=== PATIENT | male | born 1955 | race Caucasian/White ===

== ENCOUNTER 2017-07-05 11:46 | Observation (INO) ==
--- NOTE | 2017-07-04 22:19 | Discharge Summary ---
<Thao Mejia E - Last Filed: 07/04/17 22:16> Date of Encounter: 07/04/17 - Discharge Diagnosis (1) Rotator cuff tear arthropathy of right shoulder Priority: Primary Status: Chronic (2) Tobacco dependence Priority: Secondary Status: Chronic (3) GERD (gastroesophageal reflux disease) Priority: Secondary Status: Chronic (4) Obesity Priority: Secondary Status: Chronic Qualifiers: Obesity type: unspecified obesity type Obesity classification: unspecified obesity classification Serious obesity comorbidity presence: unspecified whether serious comorbidity present Qualified Code(s): E66.9 - Obesity, unspecified - Hospital Course Hospital course: Mr. Gama is a 62 year old male - Time Spent with Patient Total time spent providing and/or coordinating discharge services: - Discharge Medications Home Medications: OxyCODONE Immed Rel [Roxicodone 5 MG] 5 mg PO Q6HR PRN 7 Days #28 tablet [Rx] Celecoxib [Celebrex] 400 mg PO DAILY 07/05/17 [History] Gabapentin [Neurontin] 600 mg PO TID 07/05/17 [History] HYDROcodone/Acet 5/325 mg [[place] 5-325 mg] 1 tab PO Q6H PRN 07/05/17 [History] Oxybutynin Chloride [Ditropan Xl] 10 mg PO DAILY 07/05/17 [History] Tamsulosin [Flomax] 0.4 mg PO HS 07/05/17 [History] Terbinafine HCl [Lamisil] 250 mg PO HS 07/05/17 [History] Allergies/Adverse Reactions: 3 Allergy/AdvReac Type Severity Reaction Status Date / Time No Known Allergies Allergy Verified 07/05/17 12:38 Primary care physician: Mik Cheung MD - Patient Status Disposition: Home, Self-Care Condition: Good - Discharge Instructions Follow Up With: Mik Cheung MD [Primary Care Provider] - Fadia Prater PAC [Physician Society Reporter] - 07/15/17 8:15 am Additional Instructions: Discharge Instructions: Total Shoulder Please call [facility] ([phone]), your Primary Care Physician, or report to the Emergency Room if you have any of the following symptoms: Nausea, vomiting, fever greater that 101.5, swelling, chest pain, shortness of breath, increased pain/redness/drainage/odor for your incision site, numbness/ tingling, or any other concerning symptoms. ACTIVITY: Always keep your arm in the sling. Do not raise your arm away from your body. Do not use your arm to help with getting in or out of bed. No weight bearing permitted. Only perform those exercises given to you by your therapist. MEDICATIONS: Upon discharge resume your home medications. Take all the medications as prescribed. Take a stool softener if taking narcotic pain medications. Stool softeners are only effective if you drink enough fluids. Drink 6-8 glass of water or fluids a day, unless this is not allowed for another health problem. Despite using stool softeners, if you haven't had a bowel movement in 3 days, please switch to a gentle laxative. Gentle laxatives are sold over the counter. You should have a bowel movement within 24 hours, if not call the office. You will be discharged from the hospital with a prescription for pain medication. You are encouraged to decrease the use of narcotic pain medication as tolerated. Should you require a refill, please call the office. [facility] prescribes narcotic pain medication for only 4-6 weeks after surgery. If you require pain medication beyond this time period, you may be referred to your Primary Care Physician or to the Pain Clinic for further evaluation. Plan ahead for refills on pain medication as many narcotics either need to be picked up at the office or mailed. It is best to call 48-72 hours in advance of needing a prescription refill so you don't run out of medication. To help control the post-operative pain, you may take NSAIDs (Aleve,Advil, Motrin, Ibuprofen, Naprosyn) or Tylenol as prescribed on the bottle in addition to the pain medication. WOUND CARE: Leave the dressing on for 7-10 days. You may change the dressing if it becomes saturated greater than 50%. Do not get the dressing wet at anytime. Wash your hands with antibacterial soap, rinse and dry prior to any wound care. If you have antonio the visiting nurse or rehab facility can remove the stapes 10-14 days after surgery and place steri-strips across the wound. Leave the steri-strips in place until they fall off on their own. You may let water from the shower run on top of the steri-strips. If you do not have a visiting nurse or rehab facility, you will need to return to the office at 10-14 days for the antonio to be removed. If you have itching or redness around the dressing call the office. FOLLOW-UP: Please follow up with your surgeon in the orthopedic clinic, as scheduled <Isra Guillaume - Last Filed: 07/06/17 06:59> Orders not resulted at time of discharge: Pending orders 07/05/17 01:00 XR shoulder complete RT [XR] Routine Hemoglobin and Hematocrit [HEME] Routine Date of Encounter: 07/06/17 Time of Encounter: 06:58 - Discharge Diagnosis (1) Obesity, morbid, BMI 40.0-49.9 Priority: Secondary Status: Chronic (2) Rotator cuff tear arthropathy of right shoulder Priority: Primary Status: Chronic (3) Tobacco dependence Priority: Secondary Status: Chronic (4) GERD (gastroesophageal reflux disease) Priority: Secondary Status: Chronic Qualifiers: Esophagitis presence: esophagitis presence not specified Qualified Code(s) : K21.9 - Gastro-esophageal reflux disease without esophagitis - Hospital Course Hospital course: Mr. Gama is a 62 year old male Status post total shoulder replacement discharged home same day - Time Spent with Patient Total time spent providing and/or coordinating discharge services: Primary care physician: Mik Cheung MD - Patient Status Functional capacity at discharge: independent ambulation Overall status at discharge: patient is progressing back to baseline
[2017-07-05] MEDS ORDERED: Albuterol 2.5 MG/3 ML NEBULIZER IH ONE (12:15)
[2017-07-05] MEDS ORDERED: Lidocaine -MPF 1% 2 ML VIAL ID ONE (12:15)
[2017-07-05] MEDS ORDERED: CeFAZolin Syr 3,000MG/30 ML 3,000 MG/30 ML SYRINGE IVPB ONE ×2 (12:15→18:57)
[2017-07-05] MEDS ORDERED: Plasma-Lyte A (PH 7.4) 1,000 ML IVC SCH (12:15)
--- NOTE | 2017-07-05 12:16 | History & Physical Report ---
Date of Encounter: 07/05/17 Time of Encounter: 12:16 24 Hour HP Update - Instructions Instructions: If the History and Physical is less than 30 days old and was completed prior to A.M. admission and or procedure and has NOT been updated on calendar day of procedure please complete this update prior to performing procedure. - Update Patient reports changes in Medical Condition: No Changes in examination, assessment, or condition: No Changes in Medication: No Preop tests/diagnostics Reviewed: Yes Surgery Remains Indicated: Yes Consent for Planned Operative Procedure(s) Verified: Yes - Pre-Operative Checklist Preoperative Checklist Indicated: No Prophylactic Antibiotic Ordered: Yes Is VTE Prophylaxis Indicated?: Yes
[2017-07-05] MEDS ORDERED: *HR* Midazolam HCl 2 MG/2 ML VIAL ONE (13:44)
[2017-07-05] MEDS ORDERED: *HR* FentaNYL (PF) 100 MCG/2 ML VIAL ONE (13:44)
[2017-07-05] MEDS ORDERED: *HR* Propofol 200 MG/20 ML VIAL IVP ONE ×2 (13:44→15:37)
[2017-07-05] MEDS ORDERED: Lidocaine -MPF 2% 2 ML VIAL ONE ×2 (13:47→14:55)
[2017-07-05] MEDS ORDERED: Acetaminophen IV 1,000 MG/100 ML INFUS..BTL IVPB ONE (13:49)
--- NOTE | 2017-07-05 13:52 | Anesthesia Evaluation PreOp ---
Date of Encounter: 07/05/17 Time of Encounter: 13:50 - Past History Planned Operation: R total shoulder replacement, reverse ball socket Cardiac History: Denies any Significant Hx Pulmonary History: Smoker PEWTER FABRICATOR History: Other (neuropathy bilat ankles) Other Medical History: Other (BMI 42) Anesthesia History: Past Anesthesia (reinaldo TKR, reinaldo CTR, appendectomy, lumbar fusion, L cecile fusion), Problems (hx of difficult intubation once in the past) Alcohol Use: none Drug use: none Medications and Allergies OxyCODONE Immed Rel [Roxicodone 5 MG] 5 mg PO Q6HR PRN 7 Days #28 tablet [Rx] Celecoxib [Celebrex] 400 mg PO DAILY 07/05/17 [History] Gabapentin [Neurontin] 600 mg PO TID 07/05/17 [History] HYDROcodone/Acet 5/325 mg [[place] 5-325 mg] 1 tab PO Q6H PRN 07/05/17 [History] Oxybutynin Chloride [Ditropan Xl] 10 mg PO DAILY 07/05/17 [History] Tamsulosin [Flomax] 0.4 mg PO HS 07/05/17 [History] Terbinafine HCl [Lamisil] 250 mg PO HS 07/05/17 [History] 3 Allergy/AdvReac Type Severity Reaction Status Date / Time No Known Allergies Allergy Verified 07/05/17 12:38 - Meds/Allergy Pre-op Review Medications Reviewed: Yes Allergies Reviewed: Yes Beta Blockers on Current Med List: No Anesthesia Results - Labs Laboratory Tests 06/21/17 06/21/17 06/21/17 08:32 08:32 08:35 WBC 4.0 L Hgb 14.9 Hct 46.3 Plt Count 188 PT 10.4 INR 1.0 APTT 32.0 Sodium 138 Potassium 4.3 Chloride 106 Carbon Dioxide 29 BUN 17 Creatinine 0.79 Glucose 95 - Imaging EKG: image reviewed (SR) Anesthesia Exam O2 Sat Height 1.77 m Height 1.77 m Weight 133.81 kg Weight 133.81 kg O2 Sat by Pulse Oximetry 98 O2 Sat by Pulse Oximetry 98 Vital Signs Temp Pulse Resp BP Pulse Ox 97.8 F 68 18 128/86 98 07/05/17 12:19 07/05/17 12:19 07/05/17 12:19 07/05/17 12:19 07/05/17 12:19 Height: 69" Weight: 295lbs NPO (# of Hours): >8 - HEENT Pupil (Motor): Pupils equal, EOMI Mallampati: III Teeth: Prosthesis (extensive upper caps and crowns) Oral Opening: Greater than 3 - PEWTER FABRICATOR LOC: Oriented PEWTER FABRICATOR Motor: Normal RUE, Normal LUE, Normal RLE, Normal LLE, Normal Face PEWTER FABRICATOR Sensory: Normal: RUE, LUE, RLE, LLE, Face - Cardiac Rhythm: Regular - Pulmonary Breath Sounds: bilateral Clear Respiratory Effort: Symmetrical Anesthesia Assess/Plan ASA Score: 3 (smoker, BMI 42) Modified [place] Scale for Level of Consciousness: Cooperative, oriented, and tranquil Anesthetic Plan: General, Regional (R brachial plexus block) Monitoring Plan: Standard Monitors Recovery Plan: PACU
[2017-07-05] MEDS ORDERED: ROPIVACAINE HCL/PF 0.5% 30 ML VIAL ONE (14:17)
[2017-07-05] MEDS ORDERED: Dexamethasone 4 MG/ML VIAL ONE ×2 (14:22→16:04)
--- NOTE | 2017-07-05 14:42 | Anesthesia Procedures ---
Date of Encounter: 07/05/17 Time of Encounter: 14:40 Procedures: Anesthesia - Nerve Block Procedure Date: 07/05/17 Time: 14:40 Surgical Procedure: right tsr reverse Checklist: Correct Patient Identifier, Correct procedure, History checked Correct side: Right Blood Thinner: No Monitor Applied: EKG, BP, Pulse Oximetry Supplemental Oxygen via Nasal Cannula (L/min): 2 Sedation: Versed (mg): 2 Sedation: Fentanyl (mcg): 100 Indication: Post Op Analgesia (request per dr damian for post op pain control) Pre-op Neuro Deficits: No Block Type: Supraclavicular Catheter placed: No Sterile Technique: Yes Ultrasound used: Yes Anatomy identified: Yes Visual spread of Local: Yes Neuro Stimulation: No Blood on Needle Aspiration: No Smooth Injection of Local: Yes Pain with Injection of Local: No Prep: Chlorhexadine Needle: 22 x 50 mm Stimuplex Local: Ropivacaine Volume (cc): 30 Number of Attempts: 1 Complications: None/effective block Vitals: Vital Signs/O2 Sat/Glucose, Most Current Temp Pulse Resp BP Pulse Ox 07/05/17 12:19 97.8 F 68 18 128/86 98 Comments: pt tolerated procedure well. no complications. vss
[2017-07-05] MEDS ORDERED: *HR* Succinylcholine 200 MG/10 ML VIAL IVP ONE (14:56)
[2017-07-05] MEDS ORDERED: Lidocaine -MPF 4% 5 ML AMPUL ONE (14:59)
[2017-07-05] MEDS ORDERED: *HR* PHENYLEPHRINE 1,000 MCG/10 ML SYRINGE IVP ONE (15:33)
[2017-07-05] MEDS ORDERED: Ketorolac 30 MG/ML VIAL ONE (16:04)
[2017-07-05] MEDS ORDERED: Ondansetron 4 MG/2 ML VIAL ONE (16:04)
--- NOTE | 2017-07-05 16:05 | Orthopedic Operative Note ---
Date of procedure: 07/05/17 Pre-op diagnosis: Right cuff tear arthropathy Post-op diagnosis: same Procedure: Procedure: Total Shoulder Replacment Reverse, right Estimated blood loss: 100 cc Hardware: Metal and polyethylene replacement: Arthrex large glenoid baseplate, 2 4.5 screws. 1 6.5 screw, 42+4 glenosphere, 9 humeral stem, poly insert 3 and 6 metal Exam Under anesthesia: Full motion and no instability Procedural Notes: Grade 4 arthritic changes humeral head glenoid socket tear rotator cuff Operative procedure: The patient was brought to the operating room and placed on the operating room table. After general anesthesia was administered the operative shoulder was examined. Findings were noted. The patient was placed in the modified beachchair position. All pressure points were padded appropriately. And the head was stabilized in the neutral position. The operative extremity was prepped and draped in the sterile surgical fashion. The patient received IV antibiotics prior to skin incision. A standard deltopectoral approach was made to the operative shoulder. Incision was made to the skin and subcutaneous tissue,hemo stasis was obtained with Bovie cautery. Using careful blunt dissection the cephalic vein was identified and mobilized medially. The deltopectoral interval was developed and the clavipectoral fascia was incised. The subscap was released off the lesser tuberosity and tagged with #2 FiberWire suture subscap was irreparable. The humerus was dislocated patient noted to have irreparable tear supraspinatus tendon, and the humeral cut was made along the anatomic neck. Patient noted to have grade 4 arthritic changes humeral head Anterior and posterior Bankart retractors were placed to expose the glenoid. Patient noted to have grade 4 arthritic changes glenoid socket The glenoid guide was seated and the centering hole was made. It was reamed with the appropriate reamer. The large baseplate was seated and secured with (2) 4.5 screws and one 6.5 screw. The baseplate was irrigated and dried and the wound 2+4 Glenosphere was seated and secured with the Lane taper. The Lane taper was tested and found to be secure the humerus was redislocated and prepared with the diaphyseal reamers, followed by a broaching process up to the appropriate size 9 in the patient's anatomic version. The metaphyseal reamer was then utilized. Trial reduction found the shoulder to be relocatable. Trial components were removed and The appropriate 9 stem was impacted in place in the patient's anatomic version. Trial reduction found the shoulder to be relocatable and stable with the appropriate 3 Jaylin 6 metal Trial component was removed and the real implants was seated and secured the shoulder was reduced. The shoulder had excellent motion and excellent stability and no evidence of dislocation. The deep tissue was irrigated with pulse irrigation. The PA close the shoulder. The deltopectoral interval was closed with a running #1 PDS suture, subcutaneous tissue was irrigated and closed with 0 PDS suture, the skin was closed with Dermabond. The patient was placed in a sterile dressing, abduction brace and extubated. The patient was then transferred to the recovery room in stable condition. Anesthesia: STEVE Surgeon: Isra Guillaume Was there an medical laboratory assistant present: Yes Press Tender Smoke Signal: Thao Mejia Estimated blood loss (cc): 100 Condition: stable Disposition: PACU
--- NOTE | 2017-07-05 17:01 | Anesthesia Evaluation Post Op ---
Date of Encounter: 07/05/17 Time of Encounter: 17:00 - Vital Signs Vital Signs: Last Vital Signs Temp 97.3 F L 07/05/17 16:55 Pulse 74 07/05/17 16:55 Resp 16 07/05/17 16:55 BP 146/60 07/05/17 16:55 Pulse Ox 98 07/05/17 16:55 - Lungs Lungs: Clear Ascult./Percussion - Airway Airway: Non-obstructed - Cardiovascular Regular Rate - Mental Status Mental Status: Alert & Oriented, Answers Appropriately - Pain Pain Scale: 1 - Nausea Vomiting Nausea Vomiting: Not Present - Hydration Hydration: Ice chips - Discharge PostOp Status: Transfer Patient to floor
[2017-07-05] MEDS ORDERED: Ringers Solution, Lactated 1,000 ML IVC SCH (17:18)
[2017-07-05] MEDS ORDERED: *HR* OxyCODONE Immed Rel 5 MG TABLET PO PRN ×2 (17:18)
[2017-07-05] MEDS ORDERED: Naloxone 0.4 MG/ML INJ IVP PRN (17:18)
[2017-07-05] MEDS ORDERED: Gabapentin 300 MG CAPSULE PO SCH (17:18)
[2017-07-05] MEDS ORDERED: Sennosides 8.6 MG TABLET PO PRN (17:18)
[2017-07-05] MEDS ORDERED: MOM Conc 10 ML UD.LIQ PO PRN (17:18)
[2017-07-05] MEDS ORDERED: Ondansetron 4 MG/2 ML VIAL IVP PRN (17:18)
[2017-07-05] MEDS ORDERED: Temazepam 15 MG CAPSULE PO PRN (17:18)
[2017-07-05 17:21] LABS: Hematocrit 48.5 % (37.5-50.1)
[2017-07-05 17:28] VITALS: BP 121/81
[2017-07-05] MEDS ORDERED: *HR* Enoxaparin 30 MG/0.3 ML SYRINGE SQ SCH ×2 (18:00)
[2017-07-05] MEDS ORDERED: TERBINAFINE HCL 250 MG PO SCH (21:00)
[2017-07-05] MEDS ORDERED: CeFAZolin Syr 3,000MG/30 ML 3,000 MG/30 ML SYRINGE IVPB SCH (23:00)
--- NOTE | 2017-07-06 14:25 | Electrocardiograph Report ---
[facility] Test Date: 2017-07-05 Pat Name: Piotr Gama Department: 106 Room: [facility] Gender: M Core Loader: ELISE : 1955 Requested By: Sarah Beth Kern Order Number: [id number] Reading MD: Jonnie Mata MD Measurements Intervals [place] Rate: 77 P: 49 MD: 172 QRS: -22 QRSD: 94 T: 46 QT: 370 QTc: 402 Interpretive Statements SINUS RHYTHM BORDERLINE LEFT AXIS DEVIATION Electronically Signed On 07-06-2017 14:23:34 EST by Jonnie Mata MD
== END 2017-07-05 20:30 | disposition home or self-care (01) | DRG 483 ==
LOC: SAMDAY 11:46 → 3NENU 17:14 → INTOOBSV 17:14
PROVIDERS: ADMIT Orthopaedic Surgery; ATTEND Orthopaedic Surgery